=== PATIENT | female | born 1945 | race Caucasian/White ===

== ENCOUNTER → 2020-06-14 | Outpatient (CLI) | payer MEDICARE, OTHER ==
[~2020-06-14] MED LIST: AMIODARONE HCL200 MG PO; AMLODIPINE BES2.5 MG PO; ARTHRITIS PAIN100 GM TOP; ASPIRIN CHEWABL81 MG PO; AUGMENTIN 875-1 EACH PO; BENICAR 20 MG T20 MG PO; CLOPIDOGREL75 MG PO; CURCUMIN250 GM PO; ECOTRIN81 MG PO; ELIQUIS 5 MG TAB5 MG PO; EUTHYROX75 MCG PO; FIBER COMPLETE PO; FLONASE 0.05% N16 GM; GLUCOPHAGE1000 MG PO; IPRAT-ALBUT 0.5-3 ML INH; IRBESARTAN300 MG PO; JANUVIA100 MG PO; LATANOPROST2.5 ML EYEBOTH; LOPRESSOR 25 MG25 MG PO; METAMUCIL POWD822 GM PO; METAXALONE800 MG PO; METFORMIN HCL1000 MG PO; MONTELUKAST SOD10 MG PO; MULTIVITAMIN1 EACH PO; NITROGLYCERIN0.4 MG PO; NITROGLYCERIN0.4 MG SL; NORCO 5-325 TA1 EACH PO; OMEPRAZOLE20 MG PO; OXCARBAZEPINE150 MG PO; PLAVIX 75 MG TA75 MG PO; PRAVACHOL40 MG PO; PRAVASTATIN SOD80 MG PO; PRESERVISION A1 EACH PO; SERTRALINE HCL100 MG PO; SINGULAIR10 MG PO; SKELAXIN800 MG PO; STOOL SOFTENER100 MG PO; VITAMIN D31000 UNI1 PO; VITAMIN D325 MCG PO; XALATAN OP SOL2.5 ML OP; ZOLOFT50 MG PO; ZYRTEC10 MG PO
== END ==
LOC: HEART 5 08:20
DX: I20.9 Angina pectoris, unspecified (principal); I10 Essential (primary) hypertension; I34.8 Other nonrheumatic mitral valve disorders
CPT/HCPCS: 78452; 93306; A9502; J2785

== ENCOUNTER → 2020-07-21 | Outpatient (CLI) | payer MEDICARE, OTHER ==
[2020-07-21 10:24] LABS: HEMOGLOBIN 12.7 gm/dl (12.3-15.3); RED BLOOD COUNT 4.26 M/UL (4.00-5.10); WHITE BLOOD COUNT 7.3 K/UL (4.5-11.0)
[2020-07-21 11:04] LABS: BUN/CREATININE RATIO 20 (0-10)
== END ==
LOC: LAB 09:13
PROVIDERS: Internal Medicine Interventional Cardiology
DX: R07.89 Other chest pain (principal); E11.9 Type 2 diabetes mellitus without complications; R06.02 Shortness of breath; R94.39 Abnormal result of other cardiovascular function study; I25.10 Atherosclerotic heart disease of native coronary artery without angina pectoris
CPT/HCPCS: 36415; 80048; 85025; 85610; 85730; 93005

== ENCOUNTER 2020-07-27 06:58 | Outpatient (CLI) | payer MEDICARE, OTHER ==
[~2020-07-27] VITALS: Ht 165.1 cm; Wt 96.6 kg
[~2020-07-27 06:58] MED LIST changes: -AMIODARONE HCL200 MG PO; -AMLODIPINE BES2.5 MG PO; -ARTHRITIS PAIN100 GM TOP; -AUGMENTIN 875-1 EACH PO; -BENICAR 20 MG T20 MG PO; -CLOPIDOGREL75 MG PO; -ECOTRIN81 MG PO; -ELIQUIS 5 MG TAB5 MG PO; -EUTHYROX75 MCG PO; -FIBER COMPLETE PO; -FLONASE 0.05% N16 GM; -IPRAT-ALBUT 0.5-3 ML INH; -LATANOPROST2.5 ML EYEBOTH; -METAXALONE800 MG PO; -METFORMIN HCL1000 MG PO; -MONTELUKAST SOD10 MG PO; -MULTIVITAMIN1 EACH PO; -NITROGLYCERIN0.4 MG PO; -NITROGLYCERIN0.4 MG SL; -OMEPRAZOLE20 MG PO; -PRAVASTATIN SOD80 MG PO; -PRESERVISION A1 EACH PO; -SERTRALINE HCL100 MG PO; -VITAMIN D325 MCG PO
[2020-07-27] MEDS ORDERED: CLOPIDOGREL75 MG PO (07:38)
[2020-07-27] MEDS ORDERED: ECOTRIN81 MG PO (07:38)
[2020-07-27] MEDS ORDERED: AMLODIPINE BES2.5 MG PO (07:38)
[2020-07-27] MEDS ORDERED: FIBER COMPLETE PO (07:39)
[2020-07-27] MEDS ORDERED: IPRAT-ALBUT 0.5-3 ML INH (07:39)
[2020-07-27] MEDS ORDERED: MONTELUKAST SOD10 MG PO (07:40)
[2020-07-27] MEDS ORDERED: MULTIVITAMIN1 EACH PO (07:40)
[2020-07-27] MEDS ORDERED: NITROGLYCERIN0.4 MG PO (07:41)
[2020-07-27] MEDS ORDERED: BENICAR 20 MG T20 MG PO (07:41)
[2020-07-27] MEDS ORDERED: OMEPRAZOLE20 MG PO (07:42)
[2020-07-27] MEDS ORDERED: ZYRTEC10 MG PO (07:44)
[2020-09-19] MEDS ORDERED: AMIODARONE HCL200 MG PO (14:02)
[2020-09-19] MEDS ORDERED: ELIQUIS 5 MG TAB5 MG PO (14:02)
[2020-09-19] MEDS ORDERED: AUGMENTIN 875-1 EACH PO (14:19)
== END 2020-07-27 16:37 | disposition other institution (70) ==
LOC: CATH 06:58 → PROG CARE 11:53 → CATH 16:37
DX: I25.118 Atherosclerotic heart disease of native coronary artery with other forms of angina pectoris (principal); E11.9 Type 2 diabetes mellitus without complications; E78.5 Hyperlipidemia, unspecified; I10 Essential (primary) hypertension; J45.909 Unspecified asthma, uncomplicated; Z95.5 Presence of coronary angioplasty implant and graft; Z88.2 Allergy status to sulfonamides; Z79.02 Long term (current) use of antithrombotics/antiplatelets; Z79.84 Long term (current) use of oral hypoglycemic drugs; Z79.899 Other long term (current) drug therapy; Z20.822 Contact with and (suspected) exposure to COVID-19
CPT/HCPCS: 82962; 99152; 99153; C1769; J1644; J2250; J2370; J3010; J7030; Q9967; U0002

== ENCOUNTER 2020-09-15 09:44 | Inpatient (IN) | payer MEDICARE, OTHER ==
[~2020-09-15] VITALS: Ht 165.1 cm; Wt 93.9 kg
[~2020-09-15 09:44] MED LIST changes: +AMLODIPINE BES2.5 MG PO; +BENICAR 20 MG T20 MG PO; +CLOPIDOGREL75 MG PO; +ECOTRIN81 MG PO; +FIBER COMPLETE PO; +IPRAT-ALBUT 0.5-3 ML INH; +MONTELUKAST SOD10 MG PO; +MULTIVITAMIN1 EACH PO; +NITROGLYCERIN0.4 MG PO; +OMEPRAZOLE20 MG PO
[2020-09-15 10:09] LABS: HEMOGLOBIN 11.3 gm/dl (12.3-15.3); WHITE BLOOD COUNT 6.7 K/UL (4.5-11.0)
[2020-09-15 10:39] LABS: BUN/CREATININE RATIO 13 (0-10)
[2020-09-15] MEDS ORDERED: CLOPIDOGREL75 MG PO (14:00)
[2020-09-16 05:21] LABS: HEMOGLOBIN 10.1 gm/dl (12.3-15.3); RED BLOOD COUNT 3.66 M/UL (4.00-5.10); WHITE BLOOD COUNT 7.3 K/UL (4.5-11.0)
[2020-09-16 05:42] LABS: BUN/CREATININE RATIO 11 (0-10)
[2020-09-16] MEDS ORDERED: EUTHYROX75 MCG PO (07:38)
[2020-09-16] MEDS ORDERED: METAXALONE800 MG PO (07:39)
[2020-09-16] MEDS ORDERED: METFORMIN HCL1000 MG PO (07:40)
[2020-09-16] MEDS ORDERED: SERTRALINE HCL100 MG PO (07:43)
[2020-09-16] MEDS ORDERED: OXCARBAZEPINE150 MG PO (07:43)
[2020-09-16] MEDS ORDERED: PRAVASTATIN SOD80 MG PO (07:43)
[2020-09-16] MEDS ORDERED: VITAMIN D325 MCG PO (07:44)
[2020-09-16] MEDS ORDERED: LATANOPROST2.5 ML EYEBOTH (13:10)
[2020-09-16] MEDS ORDERED: NITROGLYCERIN0.4 MG SL (13:14)
[2020-09-16] MEDS ORDERED: ARTHRITIS PAIN100 GM TOP (13:33)
[2020-09-16] MEDS ORDERED: FLONASE 0.05% N16 GM (13:34)
[2020-09-16] MEDS ORDERED: PRESERVISION A1 EACH PO (14:03)
[2020-09-17 04:50] LABS: HEMOGLOBIN 10.2 gm/dl (12.3-15.3); RED BLOOD COUNT 3.66 M/UL (4.00-5.10); WHITE BLOOD COUNT 5.5 K/UL (4.5-11.0)
[2020-09-17 05:18] LABS: BUN/CREATININE RATIO 7 (0-10)
[2020-09-18 05:25] LABS: HEMOGLOBIN 10.7 gm/dl (12.3-15.3); RED BLOOD COUNT 3.84 M/UL (4.00-5.10); WHITE BLOOD COUNT 5.3 K/UL (4.5-11.0)
[2020-09-18 05:47] LABS: BUN/CREATININE RATIO 9 (0-10)
[2020-09-19] MEDS ORDERED: ELIQUIS 5 MG TAB5 MG PO (14:02)
[2020-09-19] MEDS ORDERED: AMIODARONE HCL200 MG PO (14:02)
[2020-09-19] MEDS ORDERED: AUGMENTIN 875-1 EACH PO (14:19)
== END 2020-09-19 15:10 | disposition home or self-care (01) | DRG 281 ==
LOC: ER1 09:44 → CDU 18:23 → CCU 19:25
PROVIDERS: Emergency Medicine; ADMIT Internal Medicine
PROC: 3E033XZ Introduction of Vasopressor into Peripheral Vein, Percutaneous Approach (ICD-10-PCS; principal; 2020-09-15)
PROC: 02HV33Z Insertion of Infusion Device into Superior Vena Cava, Percutaneous Approach (ICD-10-PCS; 2020-09-15)
PROC: B24BZZ4 Ultrasonography of Heart with Aorta, Transesophageal (ICD-10-PCS; 2020-09-16)
DX: I95.2 Hypotension due to drugs (principal); I21.A1 Myocardial infarction type 2; N39.0 Urinary tract infection, site not specified; T50.995A Adverse effect of other drugs, medicaments and biological substances, initial encounter; Z20.822 Contact with and (suspected) exposure to COVID-19; I25.10 Atherosclerotic heart disease of native coronary artery without angina pectoris; E78.5 Hyperlipidemia, unspecified; E87.6 Hypokalemia; I10 Essential (primary) hypertension; B96.20 Unspecified Escherichia coli [E. coli] as the cause of diseases classified elsewhere; I48.91 Unspecified atrial fibrillation; E03.9 Hypothyroidism, unspecified; F32.9 Major depressive disorder, single episode, unspecified; Z95.1 Presence of aortocoronary bypass graft; Z79.01 Long term (current) use of anticoagulants; Z79.82 Long term (current) use of aspirin; Z79.899 Other long term (current) drug therapy; Z90.710 Acquired absence of both cervix and uterus; Z88.2 Allergy status to sulfonamides; Z91.040 Latex allergy status; Z91.048 Other nonmedicinal substance allergy status
CPT/HCPCS: ECHO; 0240U; 36415; 71045; 80053; 81001; 82550; 82553; 82962; 83605; 83690; 83735; 83880; 84100; 84443; 84484; 85025; 85610; 85730; 86140; 87040; 87077; 87086; 87186; 93005; 93306; 96374; 96375; 99285; J0696; J1160; J2270; J2405; J3475; Q9967

== ENCOUNTER → 2020-10-24 | Outpatient (CLI) | payer MEDICARE, OTHER ==
[~2020-10-24] MED LIST changes: +AMIODARONE HCL200 MG PO; +ARTHRITIS PAIN100 GM TOP; +AUGMENTIN 875-1 EACH PO; +ELIQUIS 5 MG TAB5 MG PO; +EUTHYROX75 MCG PO; +FLONASE 0.05% N16 GM; +LATANOPROST2.5 ML EYEBOTH; +METAXALONE800 MG PO; +METFORMIN HCL1000 MG PO; +NITROGLYCERIN0.4 MG SL; +PRAVASTATIN SOD80 MG PO; +PRESERVISION A1 EACH PO; +SERTRALINE HCL100 MG PO; +VITAMIN D325 MCG PO
== END ==
LOC: RAD 10:31
DX: M54.2 Cervicalgia (principal)
CPT/HCPCS: 72050

== ENCOUNTER → 2020-12-14 | Outpatient (CLI) | payer MEDICARE, OTHER | LOC: HEART 5 09:31 | DX: I48.91 Unspecified atrial fibrillation (principal) ==

== ENCOUNTER → 2021-01-09 | Outpatient (CLI) | payer MEDICARE, OTHER ==
[~2021-01-09] VITALS: Ht 165.1 cm; Wt 82.1 kg
== END ==
LOC: OPSV 10:00
DX: D53.9 Nutritional anemia, unspecified (principal); K90.9 Intestinal malabsorption, unspecified
CPT/HCPCS: 96365; J1439; J7030

== ENCOUNTER → 2021-01-16 | Outpatient (CLI) | payer MEDICARE, OTHER ==
[~2021-01-16] VITALS: Ht 165.1 cm; Wt 82.1 kg
== END ==
LOC: OPSV 09:52
DX: D53.9 Nutritional anemia, unspecified (principal)
CPT/HCPCS: 96365; J1439; J7030

== ENCOUNTER → 2021-02-03 | Outpatient (CLI) | payer MEDICARE, OTHER | LOC: CT 14:00 | DX: R11.0 Nausea (principal) | CPT/HCPCS: Q9967 ==

== ENCOUNTER 2021-05-28 09:57 | Emergency (ER) | payer MEDICARE, OTHER ==
[2021-05-28 10:29] LABS: RED BLOOD COUNT 4.02 M/UL (4.00-5.10); WHITE BLOOD COUNT 6.1 K/UL (4.5-11.0)
[2021-05-28 11:05] LABS: BUN/CREATININE RATIO 21 (0-10)
[2021-05-28] MEDS ORDERED: ONDANSETRON ODT4 MG PO (14:03)
== END 2021-05-28 14:15 | disposition home or self-care (01) ==
LOC: ER1 09:57
PROVIDERS: Nurse Practitioner
DX: R11.2 Nausea with vomiting, unspecified (principal); I51.9 Heart disease, unspecified; E11.9 Type 2 diabetes mellitus without complications; Z88.2 Allergy status to sulfonamides; Z95.5 Presence of coronary angioplasty implant and graft
CPT/HCPCS: 80053; 81001; 82150; 82550; 82553; 83690; 83874; 84484; 85025; 93005; 96374; 99285; J2405; Q9967

== ENCOUNTER → 2021-09-20 | Outpatient (CLI) | payer MEDICARE, OTHER ==
[~2021-09-20] MED LIST changes: +ONDANSETRON ODT4 MG PO
== END ==
LOC: US 08:00
DX: N93.9 Abnormal uterine and vaginal bleeding, unspecified (principal); K76.0 Fatty (change of) liver, not elsewhere classified; K86.2 Cyst of pancreas
CPT/HCPCS: 76700; 76830

== ENCOUNTER → 2021-11-01 | Outpatient (CLI) | payer MEDICARE, OTHER | LOC: HEART 5 11:01 | DX: R42 Dizziness and giddiness (principal) ==

== ENCOUNTER 2021-12-01 20:58 | Observation (INO) | payer MEDICARE, OTHER ==
[~2021-12-01] VITALS: Ht 165.1 cm; Wt 86.2 kg
[~2021-12-01 20:58] MED LIST changes: -MULTIVITAMIN1 EACH PO; +WOMEN'S 50 PLU1 EACH PO
[2021-12-01 21:44] LABS: HEMOGLOBIN 13.6 gm/dl (12.3-15.3); RED BLOOD COUNT 4.51 M/UL (4.00-5.10); WHITE BLOOD COUNT 9.2 K/UL (4.5-11.0)
[2021-12-02] MEDS ORDERED: GEMTESA75 MG PO (10:29)
[2021-12-02] MEDS ORDERED: METOPROLOL TART25 MG PO ×2 (10:36→14:15)
[2021-12-02] MEDS ORDERED: ROPINIROLE HC0.25 MG PO (10:38)
[2021-12-02] MEDS ORDERED: CRESTOR40 MG PO (10:40)
[2021-12-02] MEDS ORDERED: PROVENTIL HFA6.7 GM INH (10:40)
[2021-12-02] MEDS ORDERED: ELIQUIS5 MG PO (14:09)
== END 2021-12-02 14:06 | disposition home or self-care (01) ==
LOC: ER1 20:58 → CDU 22:23 → M/S 22:23
PROVIDERS: Nurse Practitioner; ADMIT Internal Medicine
DX: I48.0 Paroxysmal atrial fibrillation (principal); R07.89 Other chest pain; I45.10 Unspecified right bundle-branch block; I44.4 Left anterior fascicular block; I25.10 Atherosclerotic heart disease of native coronary artery without angina pectoris; I10 Essential (primary) hypertension; E78.5 Hyperlipidemia, unspecified; E11.9 Type 2 diabetes mellitus without complications; E03.9 Hypothyroidism, unspecified; Z86.16 Personal history of COVID-19; Z95.1 Presence of aortocoronary bypass graft; Z95.5 Presence of coronary angioplasty implant and graft; Z88.2 Allergy status to sulfonamides; Z91.040 Latex allergy status; Z79.890 Hormone replacement therapy; Z79.82 Long term (current) use of aspirin; Z79.899 Other long term (current) drug therapy
CPT/HCPCS: 36415; 71045; 80053; 80061; 82550; 82553; 82607; 82962; 83036; 83735; 84439; 84443; 84484; 85025; 93005; 99285; G0378; J1650